=== PATIENT | male | born 1955 | race Caucasian/White ===

== ENCOUNTER 2019-10-27 08:49 | Outpatient (CLI) | payer MEDICARE, OTHER ==
--- NOTE | 2019-10-27 12:05 | CT ---
CT ABDOMEN AND PELVIS WITHOUT AND WITH CONTRAST: Date: 10/27/2019 COMPARISON: None. HISTORY: Left-sided abdominal pain for months. History of hernia repair. Evaluate for obstruction. TECHNIQUE: Multiple contiguous axial images were obtained in a CT of the abdomen and pelvis without and with con trast. Postcontrast images obtained in the arterial and portal venous phases. Sagittal and coronal re formats were performed. FINDINGS: There are calcified gallstones in the gallbladder. No gallbladder wall thickening is seen. The liver, right kidney, adrenal glands, spleen, and pancreas are unremarkable. There is a small cyst in the le ft kidney measuring 2.0 cm in size. The large and small bowel are unremarkable. The appendix is normal. No abdominal or pelvic lymphadeno marek seen. Degenerative changes are seen in the spine. The visualized inferior thorax and abdominal wall soft ti ssues are unremarkable. There is no evidence of hernia. IMPRESSION: 1. No evidence of acute intra-abdominal/pelvic abnormality. 2. Cholelithiasis. 3. Left renal cyst. POS: CET
[2019-10-27] MEDS ORDERED: Iopamidol 370 76% 100 ML VIAL ONE (13:10)
== END 2019-10-27 08:50 | disposition home or self-care (01) ==
LOC: CT 08:49
PROVIDERS: ATTEND Internal Medicine Gastroenterology
DX: K56.609 Unspecified intestinal obstruction, unspecified as to partial versus complete obstruction (principal); R10.9 Unspecified abdominal pain; K80.20 Calculus of gallbladder without cholecystitis without obstruction; N28.1 Cyst of kidney, acquired
CPT/HCPCS: 74178; 82565; Q9967

== ENCOUNTER 2021-05-15 13:34 | Outpatient (CLI) | payer OTHER | END 2021-05-15 13:35 | disposition home or self-care (01) | LOC: DTY/OP 13:34 | PROVIDERS: ATTEND Family Medicine | DX: K52.9 Noninfective gastroenteritis and colitis, unspecified (principal) | CPT/HCPCS: 97802 ==